=== PATIENT | male | born 1995 | race Caucasian/White ===

== ENCOUNTER 2016-10-19 21:29 | Emergency (ER) | payer OTHER | END 2016-10-20 00:16 | disposition home or self-care (01) | LOC: D.ER 21:29 | DX: S91.115A Laceration without foreign body of left lesser toe(s) without damage to nail, initial encounter (principal); L08.9 Local infection of the skin and subcutaneous tissue, unspecified; X58.XXXA Exposure to other specified factors, initial encounter; Y93.11 Activity, swimming ==